=== PATIENT | female | born 1955 | race Caucasian/White ===

== ENCOUNTER 2016-03-09 14:57 | Emergency (ER) | payer OTHER ==
[2016-03-09 15:24] VITALS: BP 145/95
--- NOTE | 2016-03-09 15:34 | UC ---
Throat Pain/Nasal Eddie HPI - HPI Summary HPI Summary: complaint of nasal congestion and cough that started approx 2 weeks ago sore throat for the first 2 days of illness mucus constantly running down the back of her throat pressure behind her eyes and face and upper teeth frequent headaches in the front of her head ears feel full and itchy using humidifier in her bedroom denies fever and chills using saline spray in niose without relief homoepathic sinus medication without relief - History of Current Complaint Chief Complaint: UCRespiratory Stated Complaint: COUGH Time Seen by Provider: 03/09/16 15:28 - Allergies/Home Medications Allergies/Adverse Reactions: Allergies Allergy/AdvReac Type Severity Reaction Status Date / Time Metronidazole [From Flagyl] Allergy Severe TONGUE Verified 03/09/16 15:25 TURNED BLACK, METALLIC TASTE, DEPRESSION Home Medications: Home Medications Multiple Vitamins W/ Minerals [Vitamins & Minerals] 1 tab PO DAILY 03/09/16 [ History Confirmed 03/09/16] PMH/Surg Hx/FS Hx/Imm Hx Previously Healthy: Yes - Surgical History Surgical History: Yes Surgery Procedure, Year, and Place: partial hysterectomy, part of lrg intestine removed - Family History Known Family History: Negative: Cardiac Disease, Hypertension, Diabetes - Social History Occupation: Employed Full-time Lives: With Family Alcohol Use: Occasionally Substance Use Type: None Smoking Status (MU): Former Smoker Type: Cigarettes Amount Used/How Often: 4 yrs When Did the Patient Quit Smoking/Using Tobacco: 1988 Review of Systems Constitutional: Negative Skin: Negative Eyes: Negative ENT: Sore Throat, Ear Ache, Nasal Discharge Respiratory: Cough Cardiovascular: Negative Gastrointestinal: Negative Genitourinary: Negative Motor: Negative Neurovascular: Negative Musculoskeletal: Negative Neurological: Negative Psychological: Negative All Other Systems Reviewed And Are Negative: Yes Physical Exam Triage Information Reviewed: Yes Appearance: No Pain Distress, Well-Nourished Vital Signs: Initial Vital Signs Temp 98.4 F 03/09/16 15:14 Pulse 72 03/09/16 15:14 Resp 16 03/09/16 15:14 BP 145/95 03/09/16 15:14 Pulse Ox 98 03/09/16 15:14 Vital Signs Reviewed: Yes Eyes: Positive: Conjunctiva Clear ENT: Positive: Nasal congestion, Nasal drainage, TM bulging, Other: - maxillary sinus tenderness. Negative: TM red Neck: Positive: No Lymphadenopathy Respiratory: Positive: Lungs clear, Normal breath sounds, No respiratory distress Cardiovascular: Positive: RRR, Pulses Normal Abdomen Description: Positive: Nontender, Soft Bowel Sounds: Positive: Present Musculoskeletal: Positive: No Edema Psychological Exam: Normal Skin Exam: Normal Throat Pain/Nasal Course/Dx - Course Course Of Treatment: exam completed. will treat for sinuisitis length of illness, maxillary sinus tenderness - Differential Dx/Diagnosis Differential Diagnosis/HQI/PQRI: Sinusitis, URI Provider Diagnoses: sinusitis Discharge - Discharge Plan Condition: Stable Disposition: HOME Prescriptions: Amoxicillin/Clavulanate TAB* [Augmentin TAB 875*] 875 mg PO BID #20 tab Patient Education Materials: Sinusitis (ED) Referrals: No Primary Care Phys,NOPCP [Primary Care Provider] - [facility] [place] [facility] [Outside] Additional Instructions: Your blood pressure is elevated today, please call your primary care provider for further evaluaiton and treatment. SINUSITIS What is Sinusitis? Sinusitis is inflammation or infection of the lining of the sinuses behind the bones in your cheeks or forehead. Sinusitis may occur following a common cold, flu, or other infection; allergies; a tooth infection that spreads to the sinuses; swimming in contaminated water; pressure changes in airplanes at high altitudes; violent sneezing or nose blowing or smoking or breathing other peoples smoke. Symptoms Might Include: Nasal Congestion Sneezing Watery eyes, eye irritation, or eye itching Headaches Pressure in the cheeks Wheezing Trouble smelling Sore throat and coughing may occur Treatment Recommendations: Take medicines as prescribed until completely gone. Drink plenty of fluids. Use saline nose spray to thin the mucous and help the sinuses drain. Use a vaporizer or humidifier. Apply warm compresses to the face or forehead several times a day for 10 to 20 minutes. Call Your Doctor or Return Here IF: Your pain increases during treatment. You develop a high temperature. You develop unusual swelling around the eyes. You have difficulty with your vision. You develop a severe headache, earache, or toothache. You develop increased fever or fever that does not respond to medication such as Tylenol?. You have difficulty breathing or catching your breath. You begin to have any other new symptoms that worry you.
== END 2016-03-09 15:54 | disposition home or self-care (01) ==
LOC: UCEAST 14:57
DX: J32.9 Chronic sinusitis, unspecified (principal); Z88.8 Allergy status to other drugs, medicaments and biological substances; Z87.891 Personal history of nicotine dependence
CPT/HCPCS: 99212; G0463

== ENCOUNTER 2016-07-02 09:18 | Emergency (ER) | payer OTHER ==
[2016-07-02 09:39] VITALS: BP 147/85
--- NOTE | 2016-07-02 10:27 | UC ---
Throat Pain/Nasal Eddie HPI - HPI Summary HPI Summary: ST ("feels like swallowing glass and I feel it in my ears") starting 3 days ago. Fatigue and achy, no measured fever. Denies vomiting or rash. No cough, though she is clearing her throat because she feels like she has PND and her ears feel stuffy. Lives with daughter and grandchildren who are 6 and 2, also known exposure to strep about a week ago. - History of Current Complaint Chief Complaint: UCRespiratory Stated Complaint: SORE THROAT Time Seen by Provider: 07/02/16 09:59 Hx Obtained From: Patient Hx Last Menstrual Period: menapause ?: No Onset/Duration: Gradual Onset, Lasting Days Severity: Moderate Cough: None Associated Signs & Symptoms: Negative: Sinus Discomfort, Nasal Discharge, Fever , Vomiting - Allergies/Home Medications Allergies/Adverse Reactions: Allergies Allergy/AdvReac Type Severity Reaction Status Date / Time Metronidazole [From Flagyl] Allergy Severe TONGUE Verified 03/09/16 15:25 TURNED BLACK, METALLIC TASTE, DEPRESSION Amoxicillin [From Augmentin] Allergy Nausea Verified 07/02/16 09:33 Clavulanic Acid Allergy Nausea Verified 07/02/16 09:33 [From Augmentin] PMH/Surg Hx/FS Hx/Imm Hx Previously Healthy: Yes - Surgical History Surgical History: Yes Surgery Procedure, Year, and Place: partial hysterectomy, part of lrg intestine removed - Family History Known Family History: Positive: Cardiac Disease - father young of [place] Negative: Hypertension, Diabetes - Social History Lives: With Family Alcohol Use: Occasionally Substance Use Type: None Smoking Status (MU): Former Smoker Type: Cigarettes Amount Used/How Often: 4 yrs When Did the Patient Quit Smoking/Using Tobacco: 1988 - Immunization History Most Recent Influenza Vaccination: not utd Review of Systems Constitutional: Negative Skin: Negative Eyes: Negative ENT: Sore Throat Respiratory: Negative Cardiovascular: Negative Gastrointestinal: Negative Genitourinary: Negative Motor: Negative Neurovascular: Negative Musculoskeletal: Negative Neurological: Negative Psychological: Negative All Other Systems Reviewed And Are Negative: Yes Physical Exam Triage Information Reviewed: Yes Appearance: Well-Appearing, Pain Distress - with swallowing Vital Signs: Initial Vital Signs Temp 98.9 F 07/02/16 09:33 Pulse 70 07/02/16 09:33 Resp 18 07/02/16 09:33 BP 147/85 07/02/16 09:33 Pulse Ox 99 07/02/16 09:33 Vital Signs Reviewed: Yes Eye Exam: Normal Eyes: Positive: Conjunctiva Clear ENT: Positive: Hearing grossly normal, TMs normal. Negative: Pharyngeal erythema - pharynx injected, Nasal congestion, Nasal drainage, Tonsillar swelling, Tonsillar exudate Dental Exam: Normal Neck exam: Normal Neck: Positive: Supple, Nontender, No Lymphadenopathy Respiratory Exam: Normal Respiratory: Positive: Chest non-tender, Lungs clear, Normal breath sounds, No respiratory distress, No accessory muscle use Cardiovascular Exam: Normal Cardiovascular: Positive: RRR, No Murmur Musculoskeletal Exam: Normal Neurological Exam: Normal Neurological: Positive: Alert Psychological Exam: Normal Skin Exam: Normal Throat Pain/Nasal Course/Dx - Differential Dx/Diagnosis Provider Diagnoses: pharyngitis Discharge - Discharge Plan Condition: Stable Disposition: HOME Patient Education Materials: Pharyngitis (ED) Referrals: No Primary Care Phys,NOPCP [Primary Care Provider] - Additional Instructions: Rapid strep negative, throat culture pending. In all likelihood, you have a viral throat infection that should resolve on its own in 7-10 days. If you have trouble with swallowing, breathing, or worsening symptoms, please return here or see your primary care provider.
== END 2016-07-02 10:26 | disposition home or self-care (01) ==
LOC: UCEAST 09:18
DX: J02.9 Acute pharyngitis, unspecified (principal); R09.81 Nasal congestion; R50.9 Fever, unspecified; R11.10 Vomiting, unspecified; Z88.1 Allergy status to other antibiotic agents; Z90.711 Acquired absence of uterus with remaining cervical stump; Z87.891 Personal history of nicotine dependence
CPT/HCPCS: 87070; 87651; 99211; G0463

== ENCOUNTER 2016-07-19 09:35 | Emergency (ER) | payer OTHER ==
[2016-07-19 09:50] VITALS: BP 137/66
--- NOTE | 2016-07-19 11:27 | UC ---
Throat Pain/Nasal Eddie HPI - HPI Summary HPI Summary: PATIENT PRESENTS WITH COUGH, COPIOUS GREEN MUCOUS PRODUCTION AND SINUS DISCOMFORT WORSENING OVER 4 DAYS. DENIES SOB. NOTES TO HISTORY OF SINUS INFECTIONS AND BUT DENIES PNA OR BRONCHITIS. SHE HAS BEEN TAKING FLONASE WITHOUT RELIEF. SYMPTOMS ARE NOT WORSE OR BETTER AT SPECIFIC TIMES OF DAY AND NOT WORSE OR BETTER WITH POSITION. SHE STATES SHE IS SENSITIVE TO STIMULANTS AND CAFFEINE AND PREFERS NOT TO HAVE MEDICATIONS WITH CAFFEINE. DENIES FEVER OR MALAISE. SHE STATES SHE MAY HAVE ALLERGIES WELL, BUT HAS NOT TAKEN ANY MEDICATIONS FOR THIS. ENDORSES EAR PRESSURE, BUT DENIES NECK PAIN OR EYE SYMPTOMS. - History of Current Complaint Chief Complaint: UCRespiratory Stated Complaint: COUGH, CONGESTION Time Seen by Provider: 07/19/16 09:53 Hx Obtained From: Patient Hx Last Menstrual Period: post menopausal ?: No Onset/Duration: Sudden Onset Severity: Moderate Pain Intensity: 2 Pain Scale Used: 0-10 Numeric Cough: Productive Associated Signs & Symptoms: Positive: Hoarseness, Nasal Discharge - Epiglottits Risk Factors Epiglottis Risk Factors: Negative - Allergies/Home Medications Allergies/Adverse Reactions: Allergies Allergy/AdvReac Type Severity Reaction Status Date / Time Metronidazole [From Flagyl] Allergy Severe TONGUE Verified 03/09/16 15:25 TURNED BLACK, METALLIC TASTE, DEPRESSION Amoxicillin [From Augmentin] Allergy Nausea Verified 07/02/16 09:33 Clavulanic Acid Allergy Nausea Verified 07/02/16 09:33 [From Augmentin] PMH/Surg Hx/FS Hx/Imm Hx Previously Healthy: Yes Endocrine History Of: Denies: Diabetes, Thyroid Disease Cardiovascular History Of: Denies: Cardiac Disorders, Hypertension - Surgical History Surgical History: Yes Surgery Procedure, Year, and Place: partial hysterectomy, part of lrg intestine removed - Family History Known Family History: Positive: Cardiac Disease - father young of [place] Negative: Hypertension, Diabetes - Social History Occupation: Employed Full-time Lives: With Family Alcohol Use: Occasionally Substance Use Type: None Smoking Status (MU): Former Smoker Type: Cigarettes Amount Used/How Often: 4 yrs When Did the Patient Quit Smoking/Using Tobacco: 1988 - Immunization History Most Recent Influenza Vaccination: not utd Review of Systems Constitutional: Negative Skin: Negative Eyes: Negative ENT: Nasal Discharge, Other - POST NASAL DRIP Respiratory: Cough - WITH PRODUCTION Genitourinary: Negative Motor: Negative Neurovascular: Negative Musculoskeletal: Negative All Other Systems Reviewed And Are Negative: Yes Physical Exam Triage Information Reviewed: Yes Appearance: Well-Appearing, No Pain Distress, Well-Nourished Vital Signs: Initial Vital Signs Temp 97.6 F 07/19/16 09:42 Pulse 86 07/19/16 09:42 Resp 18 07/19/16 09:42 BP 137/66 07/19/16 09:42 Pulse Ox 98 07/19/16 09:42 Vital Signs Reviewed: Yes Eyes: Positive: Conjunctiva Clear ENT: Positive: Nasal congestion, Nasal drainage Dental Exam: Normal Neck exam: Normal Neck: Positive: Supple, Nontender, No Lymphadenopathy Respiratory Exam: Normal Respiratory: Positive: Chest non-tender, Lungs clear Cardiovascular Exam: Normal Cardiovascular: Positive: RRR Musculoskeletal Exam: Normal Musculoskeletal: Positive: Strength Intact Neurological Exam: Normal Neurological: Positive: Alert Psychological: Positive: Normal Response To Family Skin Exam: Normal Throat Pain/Nasal Course/Dx - Course Course Of Treatment: ENCOURAGED FLONASE, MUCINEX D-12 IN THE AM WITH ROBITUSSIN WITH CODEINE AT BEDTIME FOR RELIEF. WILL ENCOURAGE AND PRESCRIBED CLARITIN FOR ALLERGIES. PATIENT WILL HOLD OFF ON ABX AT THIS TIME, AND WILL FILL LATER IF SYMPTOMS BECOME WORSE D/T HISTORY OF SINUS INFECTIONS. SHE PREFERS NOT TO TAKE ABX IF INFECTION IS VIRAL. PROVIDER AGREES AND IS OK TO PRESCRIBE THE MEDICATION WITH THIS PLAN. OK FOR DISCHARGE. - Differential Dx/Diagnosis Differential Diagnosis/HQI/PQRI: Pharyngitis, Sinusitis, URI Provider Diagnoses: SINUSITIS Discharge - Discharge Plan Condition: Stable Disposition: HOME Prescriptions: Fluticasone NASAL * [Flonase *] 2 spray BOTH NARES DAILY #1 spray Levofloxacin TAB* [Levaquin 500 Tab*] 500 mg PO DAILY #5 tab Loratadine & Pseudoephedrine [Claritin-D 24 Hour 10-240 mg] 1 tab PO DAILY #30 tab guaiFENesin/CODIEN 100MG-10MG* [Robitussin AC 100Mg-10Mg*] 10 ml PO BEDTIME PRN #[id number] MDD 10 PRN Reason: Cough Patient Education Materials: Rhinosinusitis (ED), Allergies (ED), Warm Compress or Soak (ED) Referrals: No Primary Care Phys,NOPCP [Primary Care Provider] - Additional Instructions: Follow up with PCP If you develop worsening symptoms or fever, come back to UC. Flonase once daily Claritin once daily Warm compresses over sinuses if pain Fill levofloxacin if symptoms become worse Robitussin with codeine at bedtime for cough
== END 2016-07-19 10:50 | disposition home or self-care (01) ==
LOC: UCEAST 09:35
DX: J32.9 Chronic sinusitis, unspecified (principal); N95.9 Unspecified menopausal and perimenopausal disorder; Z88.3 Allergy status to other anti-infective agents; Z87.891 Personal history of nicotine dependence
CPT/HCPCS: 99212; G0463

== ENCOUNTER 2016-11-22 13:41 | Emergency (ER) | payer OTHER ==
[2016-11-22 13:51] VITALS: BP 143/93
[2016-11-22] MEDS ORDERED: Lidocaine 2% PF * 5 ML VIAL INJ ONE (14:06)
--- NOTE | 2016-11-22 14:06 | UC ---
Laceration HPI - HPI Summary HPI Summary: 61 yo female lacerated right index finger while cleaning oven ? last Td - History Of Current Complaint Chief Complaint: UCLaceration Stated Complaint: FINGER LACERATION Time Seen by Provider: 11/22/16 13:58 Hx Obtained From: Patient Hx Last Menstrual Period: post menopausal Laceration Location: Finger Mechanism Of Injury: Sharp Trauma Onset/Duration: Sudden Onset Severity: Mild Pain Intensity: 2 Pain Scale Used: 0-10 Numeric Aggravating Factors: Movement - Allergies/Home Medications Allergies/Adverse Reactions: Allergies Allergy/AdvReac Type Severity Reaction Status Date / Time Metronidazole [From Flagyl] Allergy Severe TONGUE Verified 11/22/16 13:51 TURNED BLACK, METALLIC TASTE, DEPRESSION Amoxicillin [From Augmentin] Allergy Nausea Verified 11/22/16 13:51 Clavulanic Acid Allergy Nausea Verified 11/22/16 13:51 [From Augmentin] PMH/Surg Hx/FS Hx/Imm Hx Previously Healthy: Yes GI/ History: Diverticulitis Psychological History: Depression - Surgical History Surgical History: Yes Surgery Procedure, Year, and Place: partial hysterectomy, part of lrg intestine removed - Family History Known Family History: Positive: Cardiac Disease - father young of [place] Negative: Hypertension, Diabetes - Social History Alcohol Use: Occasionally Substance Use Type: None Smoking Status (MU): Former Smoker Type: Cigarettes Amount Used/How Often: 4 yrs When Did the Patient Quit Smoking/Using Tobacco: 1988 - Immunization History Most Recent Influenza Vaccination: not utd Most Recent Tetanus Shot: Unknown Review of Systems Constitutional: Negative Skin: Negative Eyes: Negative ENT: Negative Respiratory: Negative Cardiovascular: Negative Gastrointestinal: Negative Genitourinary: Negative Motor: Negative Neurovascular: Negative Musculoskeletal: Negative Neurological: Negative Psychological: Negative Is Patient Immunocompromised?: No All Other Systems Reviewed And Are Negative: Yes Physical Exam Triage Information Reviewed: Yes Appearance: Well-Appearing, No Pain Distress, Well-Nourished Vital Signs: Initial Vital Signs Temp 98.2 F 11/22/16 13:48 Pulse 76 11/22/16 13:48 Resp 16 11/22/16 13:48 BP 143/93 11/22/16 13:48 Pulse Ox 100 11/22/16 13:48 Eyes: Positive: Conjunctiva Clear ENT: Positive: Hearing grossly normal. Negative: Nasal congestion, Nasal drainage, Trismus, Muffled/hoarse voice Neck: Positive: Supple, Nontender, No Lymphadenopathy Respiratory: Positive: Lungs clear, Normal breath sounds, No respiratory distress, No accessory muscle use Cardiovascular: Positive: RRR, No Murmur Abdomen Description: Positive: Nontender Neurological: Positive: Alert Psychological Exam: Normal Skin Exam: Other Laceration Repair - Laceration Repair 1 Description: Linear Laceration Size After Repair: Length (cm) - 1.3, Width (mm) - 2, Depth (mm) - 3 Modified For Repair: No Type Injection: Digital Anesthesia Used: 2.0% Lido Cleansing Completed Via Routine Prep: Yes Irrigation With Pressure Irrigation Device: Yes Closure Method: Single Layer Suture Of: Skin Suture Type: Nylon - 4 5-0 nylon Laceration Course/Dx - Differential Dx - Laceration/Wound Provider Diagnoses: right index finger laceration Discharge - Discharge Plan Condition: Stable Disposition: HOME Patient Education Materials: Finger Laceration (ED) Referrals: Bibi Hernandez MD [Primary Care Provider] - If Needed Additional Instructions: starting tomorrow gently clean twice daily with soap and water antibiotic ointment (I like aquaphor healing ointment or polysporin) recheck for concerns of infection
[2016-11-22] MEDS ORDERED: Tetan/Diph/Pertus SYR(Tdap)* 0.5 ML SYR(BOOSTRIX) use SYR IM ONE (14:19)
== END 2016-11-22 15:00 | disposition home or self-care (01) ==
LOC: UCEAST 13:41
DX: S61.210A Laceration without foreign body of right index finger without damage to nail, initial encounter (principal); W45.8XXA Other foreign body or object entering through skin, initial encounter; Y93.E9 Activity, other interior property and clothing maintenance; Y92.9 Unspecified place or not applicable; Z23 Encounter for immunization; Z88.1 Allergy status to other antibiotic agents; Z87.891 Personal history of nicotine dependence
CPT/HCPCS: 12001; 90471; 90715; 99211; G0463

== ENCOUNTER 2017-02-16 09:13 | Emergency (ER) | payer OTHER ==
[2017-02-16 09:54] VITALS: BP 144/74
--- NOTE | 2017-02-16 10:00 | UC ---
Respiratory Complaint HPI - HPI Summary HPI Summary: Pt presents with earache and sinus symptoms. She tells me that about 5 days ago she developed sinus congestion/pain/pressure and a fever of around 100deg. She then developed a ST, productive cough, and b/l earache over the next few days. She has been taking mucinex with mild relief. She denies SOB, chest pain, abdominal pain, N/V/d/C - History of Current Complaint Chief Complaint: UCRespiratory Stated Complaint: FEVER COUGH Time Seen by Provider: 02/16/17 09:59 Hx Obtained From: Patient Hx Last Menstrual Period: post menopausal Onset/Duration: Gradual Onset Severity Initially: Mild Severity Currently: Moderate - Allergies/Home Medications Allergies/Adverse Reactions: Allergies Allergy/AdvReac Type Severity Reaction Status Date / Time Metronidazole [From Flagyl] Allergy Severe TONGUE Verified 02/16/17 09:54 TURNED BLACK, METALLIC TASTE, DEPRESSION Amoxicillin [From Augmentin] AdvReac Nausea Verified 02/16/17 09:54 Clavulanic Acid AdvReac Nausea Verified 02/16/17 09:54 [From Augmentin] PMH/Surg Hx/FS Hx/Imm Hx Previously Healthy: Yes - Surgical History Surgical History: Yes Surgery Procedure, Year, and Place: partial hysterectomy, part of lrg intestine removed - Family History Known Family History: Positive: Cardiac Disease - father young of [place] Negative: Hypertension, Diabetes - Social History Occupation: Employed Full-time Lives: With Family Alcohol Use: None Substance Use Type: None Smoking Status (MU): Former Smoker Type: Cigarettes Amount Used/How Often: 4 yrs When Did the Patient Quit Smoking/Using Tobacco: 1988 - Immunization History Most Recent Influenza Vaccination: not utd Most Recent Tetanus Shot: Unknown Review of Systems Constitutional: Fever Skin: Negative Eyes: Negative ENT: Sore Throat, Ear Ache, Nasal Discharge, Sinus Congestion, Sinus Pain/ Tenderness Respiratory: Cough Cardiovascular: Negative Gastrointestinal: Negative All Other Systems Reviewed And Are Negative: Yes Physical Exam Triage Information Reviewed: Yes Appearance: Well-Appearing, Well-Nourished Vital Signs: Initial Vital Signs Temp 98.9 F 02/16/17 09:49 Pulse 85 02/16/17 09:49 Resp 16 02/16/17 09:49 BP 144/74 02/16/17 09:49 Pulse Ox 99 02/16/17 09:49 Vital Signs Reviewed: Yes Eyes: Positive: Conjunctiva Clear. Negative: Conjunctiva Inflamed, Discharge ENT: Positive: Hearing grossly normal, Pharynx normal, Nasal congestion, Nasal drainage, TM bulging - Left, TM red - Left, Hoarse voice, Sinus tenderness, Uvula midline. Negative: Pharyngeal erythema, Tonsillar swelling, Tonsillar exudate, Muffled voice Neck: Positive: Supple, Nontender, No Lymphadenopathy Respiratory: Positive: Chest non-tender, Lungs clear, Normal breath sounds, No respiratory distress, No accessory muscle use Cardiovascular: Positive: RRR, No Murmur, Pulses Normal Neurological: Positive: Alert Psychological: Positive: Age Appropriate Behavior Skin: Negative: rashes UC Diagnostic Evaluation - Laboratory O2 Sat by Pulse Oximetry: 99 Respiratory Course/Dx - Course Course Of Treatment: Otitis media left ear. Sinusitis. Bronchitis. Azithromycin and continue with mucinex and flonase. - Differential Dx/Diagnosis Differential Diagnosis/HQI/PQRI: Asthma, Bronchitis, Exacerbation Of COPD, Influenza, Lower Resp Infection, Sinusitis, Other - Sinusitis. Otitis externa. TM perf. Headache. Provider Diagnoses: Otitis media left. Sinusitis. Bronchitis Discharge - Discharge Plan Condition: Stable Disposition: HOME Prescriptions: Azithromycin TAB* [Zithromax TAB (Z-SADE) 250 mg #6 tabs] 2 tab PO .TODAY, THEN 1 DAILY #1 sade Patient Education Materials: Sinusitis (ED), Otitis Media (ED) Referrals: Bibi Hernandez MD [Primary Care Provider] - Additional Instructions: If you develop a fever, SOB, chest pain, new or worsening symptoms - please call your PCP or go to the ED. Your blood pressure was high at todays visit. Please see your primary provider within 4 weeks for recheck and re-evaluation. 1) Continue with mucinex and flonase. Rest and drink plenty of water. 2) May take tylenol OTC alternating with ibuprofen OTC as needed for any fevers or discomfort.
== END 2017-02-16 10:27 | disposition home or self-care (01) ==
LOC: UCEAST 09:13
DX: H66.92 Otitis media, unspecified, left ear (principal); J32.9 Chronic sinusitis, unspecified; J40 Bronchitis, not specified as acute or chronic; Z87.891 Personal history of nicotine dependence
CPT/HCPCS: 99212; G0463

== ENCOUNTER → 2018-08-25 14:02 | Emergency (ER) | payer OTHER ==
[2018-08-25 16:28] LABS: ABS Basophils 0.1 10^3/ul (0-0.2); ABS Eosinophils 0.1 10^3/ul (0-0.6); ABS Lymphocytes 1.6 10^3/ul (1.0-4.8); ABS Monocytes 0.5 10^3/ul (0-0.8); ABS Neutrophils 6.4 10^3/ul (1.5-7.7); Eosinophil % 1.3 %; Hematocrit 42 % (35-47); Lymphocyte % 18.5 %; Mean Corpuscular HGB Conc 34 g/dL (31-36); Mean Corpuscular Hemoglobin 29 pg (27-31); Mean Corpuscular Volume 87 fL (80-97); Mean Platelet Volume 7.2 fL (7.4-10.4); Platelet Count 313 10^3/uL (150-450); Red Cell Distribution Width 15 % (10-15); White Blood Count 8.7 10^3/uL (3.5-10.8)
--- NOTE | 2018-08-25 16:37 | ED ---
HPI Chest Pain - HPI Summary HPI Summary: The pt is a 63 y/o F presenting to [facility] with a CC of R lateral chest pain that radiates to her R upper back since 08/23/18 at night and is rated a 6/10 in severity. She states that it initially woke her up while she was sleeping and states that it waxes and wanes throughout the day. The pain is described as a burning. She states that she was nauseas this morning but reports that she did not vomit or have diarrhea. She states that she was lifting 40 pound bags earlier on Thursday while gardening. She denies any fevers, abdominal pain, SOB, diaphoresis, coughing, headaches, and pain while eating fatty foods. She has no aggravating or alleviating factors. She has a PMHx of smoking and she quit in 1988. She also had 12 inches of her colon removed for diverticulitis. - History of Current Complaint Chief Complaint: EDAbdPain Time Seen by Provider: 08/25/18 16:00 Hx Obtained From: Patient Hx Last Menstrual Period: post menopausal Onset/Duration: Started Days Ago - 08/23/18, Still Present Timing: Constant - waxes and wanes Initial Severity: Moderate Current Severity: Moderate Pain Intensity: 6 Pain Scale Used: 0-10 Numeric Chest Pain Location: Right Lateral Chest Pain Radiates: Yes Chest Pain Radiates To:: Back - R upper back Character: Burning Aggravating Factor(s): Nothing Alleviating Factor(s): Nothing Associated Signs and Symptoms: Positive: Chest Pain - R lateral, Other: - pain while eating fatty foods. Negative: Headaches, Shortness of Breath, Fever, Diaphoresis, Nausea, Cough, Vomiting - Allergy/Home Medications Allergies/Adverse Reactions: Allergies Allergy/AdvReac Type Severity Reaction Status Date / Time amoxicillin [From Augmentin] Allergy GI Upset Verified 08/25/18 14:17 clavulanic acid Allergy GI Upset Verified 08/25/18 14:17 [From Augmentin] metronidazole Allergy tongue Verified 08/25/18 14:17 turned black, depression, metallic taste Home Medications: Home Medications Cholecalciferol (Vitamin D3) [Vitamin D3] 2,000 unit PO DAILY 08/25/18 [History Confirmed 08/25/18] Multivitamins/Minerals TAB* [Theragran/minerals TAB*] 1 tab PO DAILY 08/25/18 [ History Confirmed 08/25/18] [place]-3 Fatty Acids (Nf) [Fish Oil (NF)] 2,000 mg PO DAILY 08/25/18 [History Confirmed 08/25/18] PMH/Surg Hx/FS Hx/Imm Hx Previously Healthy: No Endocrine/Hematology History: Denies: Hx Diabetes, Hx Thyroid Disease Cardiovascular History: Denies: Hx Hypertension, Hx Pacemaker/ICD Respiratory History: Denies: Hx Asthma, Hx Chronic Obstructive Pulmonary Disease (COPD) GI History: Denies: Hx Ulcer History: Denies: Hx Renal Disease Sensory History: Denies: Hx Hearing Aid Psychiatric History: Denies: Hx Panic Disorder - Cancer History Cancer Type, Location and Year: denies Hx Chemotherapy: No Hx Radiation Therapy: No - Surgical History Surgery Procedure, Year, and Place: partial hysterectomy, part of lrg intestine removed. urinary sling Infectious Disease History: Yes Infectious Disease History: Reports: Hx Clostridium Difficile - 2008 Denies: Hx Hepatitis, Hx Human Immunodeficiency Virus (HIV), History Other Infectious Disease, Traveled Outside the [place] in Last 30 Days - Family History Known Family History: Positive: Cardiac Disease - father young of [place] Negative: Hypertension, Diabetes - Social History Occupation: Retired Lives: With Family Alcohol Use: Occasionally Hx Substance Use: No Substance Use Type: Reports: None Hx Tobacco Use: Yes Smoking Status (MU): Former Smoker Type: Cigarettes - Quit in 1988 Amount Used/How Often: 4 yrs Review of Systems Positive: Other - NEGATIVE: pain while eating fatty foods. Negative: Fever, Skin Diaphoresis Positive: Chest Pain - R lateral, radiates to her R upper back Negative: Shortness Of Breath, Cough Positive: Nausea. Negative: Abdominal Pain, Vomiting, Diarrhea Negative: Headache All Other Systems Reviewed And Are Negative: Yes Physical Exam - Summary Physical Exam Summary: Appearance: Well-appearing, Well-nourished, lying in bed comfortably Skin: Warm, dry, no obvious rash Eyes: sclera anicteric, no conjunctival pallor ENT: mucous membranes moist, pharynx appears normal Neck: Supple, nontender Respiratory: Clear to auscultation, no signs of respiratory distress Cardiovascular: Normal S1, S2. No murmurs. Normal distal pulses in tibial and radial bilaterally. Abdomen: Soft, nontender, normal active bowel sounds present Musculoskeletal: Normal, Strength/ROM Intact Neurological: A&Ox3, awake and alert, mentation is normal, speech is fluent and appropriate Psychiatric: affect is normal, does not appear anxious or depressed Triage Information Reviewed: Yes Vital Signs On Initial Exam: Initial Vitals Temp Pulse Resp BP Pulse Ox 98.4 F 70 16 143/103 98 08/25/18 14:12 08/25/18 14:12 08/25/18 14:12 08/25/18 14:12 08/25/18 14:12 Vital Signs Reviewed: Yes Diagnostics - Vital Signs Vital Signs Temp Pulse Resp BP Pulse Ox 08/25/18 14:12 98.4 F 70 16 143/103 98 - Laboratory Result Diagrams: 08/25/18 16:17 08/25/18 16:17 Lab Statement: Any lab studies that have been ordered have been reviewed, and results considered in the medical decision making process. - Radiology CXR Radiology Interpretation Completed By: Radiologist Summary of Radiographic Findings: No active cardiopulmonary diseases. ED physician has reviewed this report. - Ultrasound Gallbaldder US Ultrasound Interpretation Completed By: Radiologist Summary of Ultrasound Findings: HYPOECHOIC LESION IN THE LEFT LOBE OF LIVER. THIS IS INCOMPLETELY CHARACTERIZED ON THE CURRENT EXAMINATION. RECOMMEND CONSIDERATION OF FURTHER EVALUATION WITH CONTRAST-ENHANCED LIVER PROTOCOL CT OF THE ABDOMEN OR CONTRAST ENHANCED MRI OF THE ABDOMEN IN THE NONACUTE. SETTING. ED Physician has reviewed this report. Re-Evaluation - Re-Evaluation First Eval Re-Evaluation Time: 17:39 Change: Improved Comment: The pt was informed of the imaging and lab results and is agreeabler to the discharge plan. Chest Pain Course/Dx - Course Course Of Treatment: The pt is a 63 y/o F presenting to [facility] with a CC of R lateral chest pain that radiates to her R upper back since 08/23/18 at night and is rated a 6/10 in severity. She states that it initially woke her up while she was sleeping and states that it waxes and wanes throughout the day. The pain is described as a burning. She states that she was nauseas this morning but reports that she did not vomit or have diarrhea. She had no abnormal findings during her PE. She had a CXR that showed no active cardiopulmonary diseases. She also had a Gallbladder US which shows HYPOECHOIC LESION IN THE LEFT LOBE OF LIVER. THIS IS INCOMPLETELY CHARACTERIZED ON THE. CURRENT EXAMINATION. RECOMMEND CONSIDERATION OF FURTHER EVALUATION WITH CONTRAST-ENHANCED LIVER PROTOCOL CT OF THE ABDOMEN OR CONTRAST ENHANCED MRI OF THE ABDOMEN IN THE NONACUTE SETTING. The pt will be discharged home with a Dx of acute abdominal pain. The gallbladder results are noncontribuatory to her current pain but will require a follow up CT in the future. - Diagnoses Provider Diagnoses: Acute abdominal pain Discharge - Sign-Out/Discharge Documenting (check all that apply): Patient Departure - discharge Patient Received Moderate/Deep Sedation with Procedure: No - Discharge Plan Condition: Good Disposition: HOME Patient Education Materials: Acute Abdominal Pain (ED) Referrals: Bibi Hernandez MD [Primary Care Provider] - Additional Instructions: Your US did show a hypoechoic area in the liver that the radiologist thinks should be looked at with a CT scan in the near future. This has nothing to do with your recent problem as far as I can tell. Otherwise the testing we did today were unremarkable, no sign of a gall bladder or lung problem. The pain is likely musculoskeletal in which case it should gradually recede over the next week or two, but if it gets worse or you develop new symptoms I would not expect that and I would want to see you back for a recheck. - Billing Disposition and Condition Condition: GOOD Disposition: Home - Attestation Statements Document Initiated by Ava: Yes Documenting Scribe: Ronnie Vinson Provider For Whom Ava is Documenting (Include Credential): Madhu Dent MD Scribe Attestation: Ronnie Amor, scribed for Madhu Dent MD on 08/27/18 at 0537. Scribe Documentation Reviewed: Yes Provider Attestation: The documentation as recorded by the Ronnie mott accurately reflects the service I personally performed and the decisions made by me, Madhu Dent MD Status of Scribe Document: Viewed
[2018-08-25 16:50] LABS: Albumin 4.1 g/dL (3.2-5.2); Albumin/Globulin Ratio 1.4 (1-3); C Reactive Protein 10.52 mg/L (<8.01); Calcium 9.3 mg/dL (8.6-10.3); EGFR African American 99.3 (>60); EGFR Non-African American 82.1 (>60); Globulin 2.9 g/dL (2-4); Potassium 3.4 mmol/L (3.5-5.0); Total Bilirubin 0.5 mg/dL (0.2-1.0)
[2018-08-25 17:41] VITALS: BP 154/90
== END | disposition home or self-care (01) ==
LOC: ED 14:02
DX: R10.9 Unspecified abdominal pain (principal); K76.9 Liver disease, unspecified; Z87.891 Personal history of nicotine dependence; R07.9 Chest pain, unspecified
CPT/HCPCS: 36415; 71046; 76705; 80053; 83690; 85025; 85379; 86140; 99282